=== PATIENT | male | born 1950 | race Caucasian/White ===

== ENCOUNTER → 2024-04-02 09:11 | Outpatient (REF) | payer MEDICARE, SELFPAY | LOC: RAD 09:11 | PROVIDERS: ATTENDING PHYSICIAN Family Medicine | DX: E83.52 Hypercalcemia (principal); E21.3 Hyperparathyroidism, unspecified; Z13.820 Encounter for screening for osteoporosis | CPT/HCPCS: 77080 ==

== ENCOUNTER 2024-10-30 06:17 | Day surgery (SDC) | payer MEDICARE, SELFPAY ==
[2024-10-30 07:21] LABS: Glucose - Point of Care 102 mg/dl (70-99)
== END 2024-10-30 09:03 | disposition home or self-care (01) ==
LOC: GI 06:17
PROVIDERS: ATTENDING PHYSICIAN Specialist
DX: Z12.11 Encounter for screening for malignant neoplasm of colon (principal); D12.2 Benign neoplasm of ascending colon; K57.30 Diverticulosis of large intestine without perforation or abscess without bleeding; K56.2 Volvulus; K64.8 Other hemorrhoids; Z86.0101 Personal history of adenomatous and serrated colon polyps
CPT/HCPCS: 45380; 82962; 88305

== ENCOUNTER → 2025-02-06 08:58 | Outpatient (REF) | payer MEDICARE, SELFPAY | LOC: HWRCS 08:58 | PROVIDERS: ATTENDING PHYSICIAN Internal Medicine; FAMILY PHYSICIAN Family Medicine | DX: I49.9 Cardiac arrhythmia, unspecified (principal); I10 Essential (primary) hypertension | CPT/HCPCS: 93306 ==